=== PATIENT | female | born 1985 | race Caucasian/White ===

== ENCOUNTER 2017-02-05 08:25 | Emergency (ER) | payer BC ==
--- NOTE | 2017-02-05 08:38 | EDM.PDOC ---
ED HPI GENERAL MEDICAL PROBLEM - General Chief Complaint: Abdominal Pain Stated Complaint: ABDOMEN MUSCLE PAIN Time Seen by Provider: 02/05/17 08:38 - History of Present Illness INITIAL COMMENTS - FREE TEXT/NARRATIVE: 31-year-old female presents emergency room with abdominal wall pain. This started on Tuesday patient was exercising and increased the speed in intensity of one of her abdominal workouts and since then she's had abdominal wall pain. She has not had any associated nausea vomiting diarrhea however it hurts for her to have BM because she can't use her abdominal muscles. She has not had any fevers or chills she's tried some ibuprofen with limited success. She denies Abdominal Pain Score (Numeric/FACES): 8 - Related Data Allergies Allergy/AdvReac Type Severity Reaction Status Date / Time No Known Allergies Allergy Verified 02/05/17 08:31 Home Meds: Home Meds Cyclobenzaprine [Flexeril] 10 mg PO TID #10 tablet 02/05/17 [Rx] Lactulose 10 gm PO Q24H PRN #300 ml 02/05/17 [Rx] Spironolactone 50 mg PO DAILY 02/05/17 [History] Past Medical History - Past Health History Medical/Surgical History: Denies Medical/Surgical History Social & Family History - Tobacco Use Smoking Status *Q: Never Smoker ED ROS GENERAL - Review of Systems Review Of Systems: See Below Constitutional: Reports: No Symptoms Respiratory: Reports: No Symptoms Cardiovascular: Reports: No Symptoms GI/Abdominal: Reports: Abdominal Pain (This is a abdominal wall pain). Denies: Constipation, Diarrhea, Nausea, Vomiting : Reports: No Symptoms ED EXAM, GI/ABD - Physical Exam Exam: See Below Exam Limited By: No Limitations General Appearance: Alert, No Apparent Distress Respiratory/Chest: No Respiratory Distress, Lungs Clear, Normal Breath Sounds Cardiovascular: Regular Rate, Rhythm, No Edema, No Murmur GI/Abdominal Exam: Normal Bowel Sounds, Soft, Other (Patient has diffuse abdominal wall type discomfort no rigidity no rebound no guarding the pain is all very superficial worsened with activities relieved with flexion of thighs.) Back Exam: Normal Inspection, Other. No: CVA Tenderness (L), CVA Tenderness (R) Course - Vital Signs Last Recorded V/S: Last Vital Signs Temp 36.4 C 02/05/17 08:32 Pulse 84 02/05/17 08:32 Resp BP 150/80 H 02/05/17 08:32 Pulse Ox 99 02/05/17 08:32 - Re-Assessments/Exams Free Text/Narrative Re-Assessment/Exam: 02/05/17 08:54 Discussed imaging and lab work with the patient which I do not believe would be beneficial to her care. She agrees on holding off on this at this point and treating as an abdominal wall strain. I will also put her on a short course of lactulose so she doesn't develop constipation with this Departure - Departure Time of Disposition: 08:55 Disposition: Home, Self-Care 01 Clinical Impression: Abdominal wall strain - Discharge Information Prescriptions: Cyclobenzaprine [Flexeril] 10 mg PO TID #10 tablet Lactulose 10 gm PO Q24H PRN #300 ml PRN Reason: Constipation Referrals: PCP,None [Primary Care Provider] - Forms: ED Department Discharge Additional Instructions: Return to the emergency room with any questions problems worsening symptoms. Follow up in the Hospital clinic on Tuesday or Tuesday for recheck. [phone] Continue your ibuprofen. You been started on Flexeril this is a muscle relaxant. Taken 3 times daily today and then starting tomorrow decrease to once in the evening. Because you're having difficulty with bowel movements I will start you on lactulose this is a good stool softener and stimulates your gastrointestinal tract to keep moving. Use 1 or 2 tablespoons daily as needed.
== END 2017-02-05 09:05 | disposition home or self-care (01) ==
LOC: JD.ED 08:25
DX: S39.011A Strain of muscle, fascia and tendon of abdomen, initial encounter (principal); Z79.899 Other long term (current) drug therapy; X58.XXXA Exposure to other specified factors, initial encounter
CPT/HCPCS: 99283